=== PATIENT | female | born 1965 | race Asian ===

== ENCOUNTER 2017-12-09 18:56 | Emergency (ER) | payer OTHER ==
[2017-12-09] MEDS ORDERED: Al Hydrox/Mg Hydrox/Simet LIQ* 30 ML UDC PO ONE (19:38)
[2017-12-09] MEDS ORDERED: Lidocaine 2% VISCOUS* 15 ML UDC PO ONE (19:39)
[2017-12-09] MEDS ORDERED: Metoclopramide IV* 5 MG/ML 2 ML VIAL IV SLOW PU ONE (19:40)
[2017-12-09] MEDS ORDERED: Pantoprazole IV* 40 MG IV ONE (19:40)
[2017-12-09 20:16] LABS: ABS Basophils 0.1 10^3/ul (0-0.2); ABS Eosinophils 0.1 10^3/ul (0-0.6); ABS Lymphocytes 2.5 10^3/ul (1.0-4.8); ABS Monocytes 0.8 10^3/ul (0-0.8); ABS Nucleated RBC 0 10^3/ul; Eosinophil % 0.3 % (0-6); Hematocrit 44 % (35-47); Hemoglobin 14.8 g/dl (12.0-16.0); Lymphocyte % 15.5 % (25-47); Mean Corpuscular HGB Conc 34 g/dl (31-36); Mean Corpuscular Hemoglobin 28 pg (27-31); Mean Corpuscular Volume 82 fL (80-97); Mean Platelet Volume 7 um3 (7.4-10.4); Nucleated Red Blood Cells % 0; Platelet Count 366 10^3/ul (150-450); Red Cell Distribution Width 13 % (10.5-15); White Blood Count 16.5 10^3/ul (3.5-10.8)
[2017-12-09 20:22] LABS: EGFR Non-African American 80.2 (>60)
[2017-12-09 20:28] LABS: Urine Appearance Clear; Urine Blood 1+ (Negative); Urine Color Yellow; Urine Ketones Negative (Negative); Urine Protein Negative (Negative); Urine Specific Gravity 1.011 (1.010-1.030); Urine Urobilinogen Negative (Negative)
--- NOTE | 2017-12-09 20:48 | RAD ---
HISTORY: Abdominal pain COMPARISONS: September 17, 2015 TECHNIQUE: Multiple transverse and longitudinal ultrasound images were obtained of the right upper quadrant of the abdomen using grayscale and color Doppler imaging. FINDINGS: The study is limited by patient bowel gas. LIVER: The liver is diffusely echogenic and coarse in echotexture, with decreased acoustic transmission. The liver is otherwise normal in shape, size, and contour. There is normal hepatopedal flow of the portal vein on Doppler imaging. BILIARY TREE: There is no intrahepatic or extrahepatic biliary dilatation. The common duct measures 0.3 cm. GALLBLADDER: The gallbladder is distended. Multiple shadowing echogenic foci consistent with gallstones are noted. There is no gallbladder wall thickening, pericholecystic fluid, or sonographic Womack sign. PANCREAS: The head of the pancreas is unremarkable. The tail of the pancreas is not well visualized secondary to overlying bowel gas. RIGHT KIDNEY: The right kidney is normal in shape, size, contour, and echogenicity. There is no hydronephrosis or nephrolithiasis. The right kidney measures 10.2 x 4.6 x 5.6 cm. AORTA AND IVC: The aorta and IVC are unremarkable. FLUID: There are no pleural effusions. There is no free fluid within the hepatorenal recess. OTHER FINDINGS: None. IMPRESSION: 1. FATTY INFILTRATION OF THE LIVER. 2. CHOLELITHIASIS WITHOUT SONOGRAPHIC FEATURES OF ACUTE CHOLECYSTITIS.
[2017-12-09 21:45] VITALS: BP 123/74
--- NOTE | 2017-12-10 01:08 | ED ---
Bob Shen Gabriel, scribaudrey for Denise Lange MD on 12/09/17 at 1933 . Abdominal Pain/Female - HPI Summary HPI Summary: This patient is a 52 year old F presenting to [facility] accompanied by her with a chief complaint of epigastric pain that began last night. The patient rates the pain 8/10 in severity and radiating into her back. Patient reports fever and abdominal bloating. Patient denies n/v/d. No abd hx - History of Current Complaint Chief Complaint: EDAbdPain Stated Complaint: RT RIB PAIN Time Seen by Provider: 12/09/17 19:30 Hx Obtained From: Patient Onset/Duration: Still Present Timing: Constant Severity Initially: Moderate Severity Currently: Severe Pain Intensity: 8 Pain Scale Used: 0-10 Numeric Location: Epigastric Radiates: Yes Radiates to: Back Alleviating Factor(s): Nothing Associated Signs and Symptoms: Positive: Fever, Other: - bloating. Negative: Nausea, Vomiting, Diarrhea Allergies/Adverse Reactions: Allergies Allergy/AdvReac Type Severity Reaction Status Date / Time No Known Allergies Allergy Verified 09/10/17 11:26 PMH/Surg Hx/FS Hx/Imm Hx Endocrine/Hematology History: Denies: Hx Anticoagulant Therapy, Hx Diabetes, Hx Systemic Lupus Erythematosus Cardiovascular History: Denies: Hx Angina, Hx Auto Implanted Cardiovert Defib, Hx Deep Vein Thrombosis Respiratory History: Reports: Hx Asthma GI History: Denies: Hx Cirrhosis, Hx Gastroesophageal Reflux Disease History: Denies: Hx Acute Renal Failure, Hx Benign Prostatic Hyperplasia Sensory History: Denies: Hx Cataracts EENT History: Reports: Hx Seasonal Allergies Neurological History: Denies: Hx CVA, Hx Dementia, Hx Developmental Delay - Cancer History Hx Chemotherapy: No Hx Radiation Therapy: No Infectious Disease History: No Infectious Disease History: Denies: Traveled Outside the [place] in Last 30 Days - Family History Known Family History: Positive: Other - grandfather had cancer Negative: Cardiac Disease, Hypertension, Diabetes, Renal Disease, Respiratory Disease, Seizure Disorder - Social History Lives: With Family Alcohol Use: None Substance Use Type: Reports: Marijuana Substance Use Comment - Amount & Last Used: 6 months ago Hx Tobacco Use: No Smoking Status (MU): Former Smoker Review of Systems Positive: Fever Positive: Abdominal Pain - and bloating . Negative: Vomiting, Diarrhea, Nausea All Other Systems Reviewed And Are Negative: Yes Physical Exam - Summary Physical Exam Summary: VITAL SIGNS: Reviewed. GENERAL: Patient is a well-developed and nourished female who is lying comfortable in the stretcher. Patient is not in any acute respiratory distress. HEAD AND FACE: No signs of trauma. No ecchymosis, hematomas or skull depressions. No sinus tenderness. EYES: PERRLA, EOMI x 2, No injected conjunctiva, no nystagmus. EARS: Hearing grossly intact. Ear canals and tympanic membranes are within normal limits. MOUTH: Oropharynx within normal limits. NECK: Supple, trachea is midline, no adenopathy, no JVD, no carotid bruit, no c- spine tenderness, neck with full ROM. CHEST: Symmetric, no tenderness at palpation LUNGS: Clear to auscultation bilaterally. No wheezing or crackles. CVS: Regular rate and rhythm, S1 and S2 present, no murmurs or gallops appreciated. ABDOMEN: Soft, with mild epigastric and RUQ tenderness No signs of distention. No rebound no guarding, and no masses palpated. Bowel sounds are normal. EXTREMITIES: FROM in all major joints, no edema, no cyanosis or clubbing. NEURO: Alert and oriented x 3. No acute neurological deficits. Speech is normal and follows commands. SKIN: Dry and warm Triage Information Reviewed: Yes Vital Signs On Initial Exam: Initial Vitals Temp Pulse Resp BP Pulse Ox 99.1 F 108 20 140/85 98 12/09/17 19:06 12/09/17 19:06 12/09/17 19:06 12/09/17 19:06 12/09/17 19:06 Vital Signs Reviewed: Yes Diagnostics - Vital Signs Vital Signs Temp Pulse Resp BP Pulse Ox 12/09/17 19:06 99.1 F 108 20 140/85 98 - Laboratory Result Diagrams: 12/09/17 19:55 12/09/17 19:55 Lab Statement: Any lab studies that have been ordered have been reviewed, and results considered in the medical decision making process. - Additional Comments Diagnostic Additional Comments: ABD US reveals, per radiologist, 1. FATTY INFILTRATION OF THE LIVER. 2. CHOLELITHIASIS WITHOUT SONOGRAPHIC FEATURES OF ACUTE CHOLECYSTITIS. ED physician has reviewed this radiology report and agrees. Re-Evaluation - Re-Evaluation First Eval Re-Evaluation Time: 21:02 Change: Improved Comment: Patient is feeling better and would like to go home. Abdominal Pain Fem Course/Dx - Course Course Of Treatment: This patient is a 52 year old F presenting to [facility] accompanied by her with a chief complaint of epigastric pain that began last night. The patient rates the pain 8/10 in severity and radiating into her back. Patient reports fever and abdominal bloating. Patient denies n/v/d. No abd hx. ABD US reveals, per radiologist, 1. FATTY INFILTRATION OF THE LIVER. 2. CHOLELITHIASIS WITHOUT SONOGRAPHIC FEATURES OF ACUTE CHOLECYSTITIS. Test results with no significant abnormalities. UA and blood work obtained. In the ED course the patient was given Protonix, reglan, Maalox, and lidocaine. Dx cholelithisas. Patient will be discharged and follow up from surgery. The patient is agreeable with this plan. - Diagnoses Provider Diagnoses: Cholelithiasis Discharge - Discharge Plan Condition: Stable Disposition: HOME Patient Education Materials: Gallstones (ED) Referrals: Willy Reeves MD [Primary Care Provider] - 4 Days Matt Bell MD [Medical Doctor] - 2 Days Additional Instructions: RETURN TO EMERGENCY DEPARTMENT FOR ANY NEW OR WORSENING SYMPTOMS The documentation as recorded by the Bob sanders Gabriel accurately reflects the service I personally performed and the decisions made by me, Denise Lange MD.
== END 2017-12-09 21:44 | disposition home or self-care (01) ==
LOC: ED 18:56
DX: K80.20 Calculus of gallbladder without cholecystitis without obstruction (principal); K76.0 Fatty (change of) liver, not elsewhere classified
CPT/HCPCS: 36415; 76705; 80053; 81003; 81015; 82150; 83690; 85025; 86140; 87086; 96374; 96375; 99284; A9270-GY; J2765